=== PATIENT | female | born 1945 | race Caucasian/White ===

== ENCOUNTER 2022-07-04 18:52 | Inpatient (IN) | payer OTHER ==
[2022-07-04] MEDS ORDERED: ALBUTEROL SO4 2.5/IPRATROPIUM 0.5 INH SOL 3 ML VIAL.NEB. NEB ONE ×2 (19:52→20:03)
[2022-07-04] MEDS ORDERED: VANCOMYCIN/WATER 1,250 MG/250 ML BAG (RESTRICTED TO ID ONLY) IVPB ONE (19:53)
[2022-07-04] MEDS ORDERED: PIPERACILLIN/TAZOB 4.5 GM 4.5 GM in DEXTROSE 5%-WATER 100 ML IVPB ONE (19:54)
[2022-07-04] MEDS ORDERED: LACTATED RINGERS SOLUTION 1000 ML INFUS.BAG IV ONE ×2 (19:55→21:32)
[2022-07-04 20:14] LABS: BASO % 0.4 % (0-2.0); HEMATOCRIT 40.1 % (32.4-45.2); HEMOGLOBIN 13.3 GM/dL (10.7-15.3); LYMPH % 23.4 % (8-40); MCH 32.5 pg (25.7-33.7); MCHC 33.2 g/dl (32.0-36.0); MEAN CELL VOLUME 97.7 fl (80-96); MEAN PLT VOLUME 6.5 fl (7.5-11.1); MONO % 8.5 % (3.8-10.2); NEUT % 66.7 % (42.8-82.8); PLATELET COUNT 283 10^3/uL (134-434); RBC 4.11 M/mm3 (3.60-5.2); RDW 13.9 % (11.6-15.6); WHITE BLOOD COUNT 8.7 K/mm3 (4.0-10.0)
[2022-07-04] MEDS ORDERED: PIPERACILLIN/TAZOB 4.5 GM 4.5 GM/100 ML BAG IVPB ONE (20:14)
[2022-07-04 20:27] LABS: INR 1.09 (0.83-1.09); PROTHROMBIN TIME (PATIENT) 12.6 SEC (9.7-13.0)
[2022-07-04 20:29] LABS: ACTIVATED PTT 30.7 SECONDS (25.2-36.5)
[2022-07-04 20:31] LABS: VENOUS BASE EXCESS 3.6 mmol/L (-2-2); VENOUS O2 SATURATION 54.6 % (70-80); VENOUS PCO2 50.6 mmHg (38-52); VENOUS PH 7.386 (7.310-7.410)
[2022-07-04 20:39] LABS: BLOOD UREA NITROGEN 34.5 mg/dL (7-18)
[2022-07-04 20:40] LABS: ALBUMIN 2.7 g/dl (3.4-5.0); MAGNESIUM 2.6 mg/dL (1.8-2.4)
[2022-07-04 20:43] LABS: CREATININE 0.9 mg/dL (0.55-1.3)
[2022-07-04 20:44] LABS: BILIRUBIN,TOTAL 0.4 mg/dL (0.2-1); TOT PROT 6.1 g/dl (6.4-8.2)
[2022-07-04 21:49] LABS: EPI CELLS >36 /uL (0-25.1); HYALINE CASTS 1 /uL (0-3.1); URINE APPEARANCE CLEAR; URINE BACTERIA 2992 /uL (0-1359); URINE BILIRUBIN NEGATIVE (NEGATIVE); URINE COLOR YELLOW; URINE GLUCOSE (UA) NEGATIVE (NEGATIVE); URINE KETONE TRACE (NEGATIVE); URINE LEUK ESTERASE 1+ (NEGATIVE); URINE NITRITE NEGATIVE (NEGATIVE); URINE PROTEIN TRACE (NEGATIVE); URINE RBC 28 /uL (0-23.9); URINE WBC 146 /uL (0-25.8)
[2022-07-04 23:35] LABS: LACTIC ACID 2.1 mmol/L (0.4-2.0)
[2022-07-04] MEDS ORDERED: DEXTROSE 5%-NORMAL SALINE 1,000 ML IV SCH (23:45)
[2022-07-05 07:00] LABS: CALCIUM 8.5 mg/dL (8.5-10.1)
[2022-07-05 07:01] LABS: BLOOD UREA NITROGEN 29.6 mg/dL (7-18); MAGNESIUM 2.2 mg/dL (1.8-2.4)
[2022-07-05 07:04] LABS: CREATININE 0.7 mg/dL (0.55-1.3); PHOSPHOROUS 3.3 mg/dL (2.5-4.9)
[2022-07-05] MEDS ORDERED: ALBUTEROL SO4 2.5/IPRATROPIUM 0.5 INH SOL 3 ML VIAL.NEB. NEB PRN (07:16)
[2022-07-05 07:18] LABS: HEMATOCRIT 38.2 % (32.4-45.2); HEMOGLOBIN 13.1 GM/dL (10.7-15.3); MCH 32.8 pg (25.7-33.7); MCHC 34.2 g/dl (32.0-36.0); MEAN CELL VOLUME 95.9 fl (80-96); MEAN PLT VOLUME 6.6 fl (7.5-11.1); PLATELET COUNT 260 10^3/uL (134-434); RBC 3.98 M/mm3 (3.60-5.2); RDW 13.7 % (11.6-15.6); WHITE BLOOD COUNT 9.8 K/mm3 (4.0-10.0)
[2022-07-05] MEDS ORDERED: ALBUTEROL SO4 2.5/IPRATROPIUM 0.5 INH SOL 3 ML VIAL.NEB. NEB ONE (07:45)
[2022-07-05] MEDS ORDERED: VANCOMYCIN/WATER 1,250 MG/250 ML BAG (RESTRICTED TO ID ONLY) IVPB SCH (08:00)
[2022-07-05] MEDS ORDERED: PIPERACILLIN/TAZOB 3.375 GM 3.375 GM in DEXTROSE 5%-WATER - 50 ML IVPB SCH ×2 (08:00→10:00)
[2022-07-05] MEDS ORDERED: VANCOMYCIN/WATER 1250 MG 1,250 MG/250 ML BAG IVPB SCH ×2 (08:00→20:00)
[2022-07-05] MEDS: FLUTICASONE PROP 0.05% 16 GM NASAL SPRAY NS SCH (10:28)
[2022-07-05] MEDS: methylPREDNISolone NA SUCC 40 MG/1 ML VIAL IVPUSH SCH ×2 (11:50→17:42)
[2022-07-05] MEDS: LORazepam 2 MG/ML SDV VIAL IVPUSH PRN (11:50)
[2022-07-05] MEDS: ALBUTEROL SO4 2.5/IPRATROPIUM 0.5 INH SOL 3 ML VIAL.NEB. NEB SCH ×5 (11:55→23:23)
[2022-07-05] MEDS: PIPERACILLIN/TAZOB 3.375 GM 3.375 GM in DEXTROSE 5%-WATER - 50 ML IVPB SCH (17:42)
[2022-07-06] MEDS: methylPREDNISolone NA SUCC 40 MG/1 ML VIAL IVPUSH SCH ×3 (02:23→17:47)
[2022-07-06] MEDS: PIPERACILLIN/TAZOB 3.375 GM 3.375 GM in DEXTROSE 5%-WATER - 50 ML IVPB SCH ×3 (02:24→17:47)
[2022-07-06] MEDS: LORazepam 2 MG/ML SDV VIAL IVPUSH PRN ×2 (03:18→17:05)
[2022-07-06] MEDS: ALBUTEROL SO4 2.5/IPRATROPIUM 0.5 INH SOL 3 ML VIAL.NEB. NEB SCH ×5 (04:30→21:23)
[2022-07-06] MEDS ORDERED: SODIUM CHLORIDE 250 ML IV STA (05:01)
[2022-07-06 08:54] LABS: BLOOD UREA NITROGEN 29.8 mg/dL (7-18); CALCIUM 8.7 mg/dL (8.5-10.1)
[2022-07-06 08:58] LABS: CREATININE 0.8 mg/dL (0.55-1.3)
[2022-07-06] MEDS: FLUTICASONE PROP 0.05% 16 GM NASAL SPRAY NS SCH (10:24)
[2022-07-06] MEDS: PANTOPRAZOLE 40 MG TABLET PO SCH (10:24)
[2022-07-06 11:05] VITALS: BMI 29.9
[2022-07-06] MEDS ORDERED: SODIUM CHLORIDE 0.45% 1,000 ML IV SCH (17:45)
[2022-07-07] MEDS: ALBUTEROL SO4 2.5/IPRATROPIUM 0.5 INH SOL 3 ML VIAL.NEB. NEB SCH ×6 (00:15→19:43)
[2022-07-07] MEDS: methylPREDNISolone NA SUCC 40 MG/1 ML VIAL IVPUSH SCH ×3 (02:04→16:59)
[2022-07-07] MEDS: PIPERACILLIN/TAZOB 3.375 GM 3.375 GM in DEXTROSE 5%-WATER - 50 ML IVPB SCH ×3 (02:05→16:59)
[2022-07-07] MEDS: LORazepam 2 MG/ML SDV VIAL IVPUSH PRN (02:05)
[2022-07-07] MEDS: PANTOPRAZOLE 40 MG TABLET PO SCH (10:34)
[2022-07-07] MEDS: FLUTICASONE PROP 0.05% 16 GM NASAL SPRAY NS SCH (10:35)
[2022-07-07] MEDS ORDERED: LORazepam 2 MG/ML SDV VIAL IVPUSH PRN (14:26)
[2022-07-07] MEDS: DONEPEZIL HCL 10 MG TABLET (FP) PO SCH (14:34)
[2022-07-07] MEDS: LORATADINE 10 MG TABLET PO SCH (14:34)
[2022-07-07] MEDS: clonazePAM 0.5 MG TABLET PO SCH ×2 (14:41→20:58)
[2022-07-07] MEDS: EZETIMIBE 10 MG TABLET (FP) PO SCH (21:03)
[2022-07-07] MEDS: ATORVASTATIN CA 20 MG TABLET (FP) PO SCH (21:04)
[2022-07-07] MEDS: MIRTAZAPINE 15 MG TABLET (FP) PO SCH (21:04)
[2022-07-07] MEDS: VALPROATE SODIUM 250 MG/5 ML UNIT DOSE CUP PO SCH (21:05)
[2022-07-08] MEDS: ALBUTEROL SO4 2.5/IPRATROPIUM 0.5 INH SOL 3 ML VIAL.NEB. NEB SCH ×6 (00:31→20:00)
[2022-07-08] MEDS: PIPERACILLIN/TAZOB 3.375 GM 3.375 GM in DEXTROSE 5%-WATER - 50 ML IVPB SCH ×3 (02:20→18:47)
[2022-07-08] MEDS: clonazePAM 0.5 MG TABLET PO SCH ×3 (06:52→22:53)
[2022-07-08] MEDS: methylPREDNISolone NA SUCC 40 MG/1 ML VIAL IVPUSH SCH ×2 (06:52→18:46)
[2022-07-08] MEDS ORDERED: HYDROCHLOROTHIAZIDE 12.5 MG CAPSULE (FP) PO SCH (10:00)
[2022-07-08] MEDS: POTASSIUM CHLORIDE ORAL LIQUID 20 MEQ/15 ML PO SCH (10:15)
[2022-07-08] MEDS: DONEPEZIL HCL 10 MG TABLET (FP) PO SCH (10:16)
[2022-07-08] MEDS: PANTOPRAZOLE 40 MG TABLET PO SCH (10:16)
[2022-07-08] MEDS: LOSARTAN POTASSIUM 50 MG TABLET PO SCH (10:16)
[2022-07-08] MEDS: LORATADINE 10 MG TABLET PO SCH (10:16)
[2022-07-08] MEDS: VALPROATE SODIUM 250 MG/5 ML UNIT DOSE CUP PO SCH ×2 (10:17→22:53)
[2022-07-08] MEDS: FLUTICASONE PROP 0.05% 16 GM NASAL SPRAY NS SCH (10:18)
[2022-07-08] MEDS ORDERED: AMPICILLIN NA/SULBACTAM NA 1.5 GM in SODIUM CHLORIDE 100 ML IVPB SCH (21:00)
[2022-07-08] MEDS: AMPICILLIN NA/SULBACTAM NA 1.5 GM in SODIUM CHLORIDE 100 ML IVPB SCH (22:53)
[2022-07-08] MEDS: ATORVASTATIN CA 20 MG TABLET (FP) PO SCH (22:54)
[2022-07-08] MEDS: MIRTAZAPINE 15 MG TABLET (FP) PO SCH (22:54)
[2022-07-08] MEDS: EZETIMIBE 10 MG TABLET (FP) PO SCH (22:54)
[2022-07-09] MEDS: AMPICILLIN NA/SULBACTAM NA 1.5 GM in SODIUM CHLORIDE 100 ML IVPB SCH ×4 (03:41→21:09)
[2022-07-09] MEDS: ALBUTEROL SO4 2.5/IPRATROPIUM 0.5 INH SOL 3 ML VIAL.NEB. NEB SCH ×6 (04:00→20:28)
[2022-07-09] MEDS: methylPREDNISolone NA SUCC 40 MG/1 ML VIAL IVPUSH SCH ×2 (06:55→17:16)
[2022-07-09] MEDS: clonazePAM 0.5 MG TABLET PO SCH ×3 (06:56→22:43)
[2022-07-09] MEDS: LOSARTAN POTASSIUM 50 MG TABLET PO SCH (11:11)
[2022-07-09] MEDS: LORATADINE 10 MG TABLET PO SCH (11:11)
[2022-07-09] MEDS: POTASSIUM CHLORIDE ORAL LIQUID 20 MEQ/15 ML PO SCH (11:11)
[2022-07-09] MEDS: VALPROATE SODIUM 250 MG/5 ML UNIT DOSE CUP PO SCH ×2 (11:11→22:42)
[2022-07-09] MEDS: DONEPEZIL HCL 10 MG TABLET (FP) PO SCH (11:11)
[2022-07-09] MEDS: PANTOPRAZOLE 40 MG TABLET PO SCH (11:11)
[2022-07-09] MEDS: FLUTICASONE PROP 0.05% 16 GM NASAL SPRAY NS SCH (11:13)
[2022-07-09] MEDS: EZETIMIBE 10 MG TABLET (FP) PO SCH (22:42)
[2022-07-09] MEDS: MIRTAZAPINE 15 MG TABLET (FP) PO SCH (22:43)
[2022-07-09] MEDS: ATORVASTATIN CA 20 MG TABLET (FP) PO SCH (22:43)
[2022-07-10] MEDS: ALBUTEROL SO4 2.5/IPRATROPIUM 0.5 INH SOL 3 ML VIAL.NEB. NEB SCH ×3 (00:31→07:27)
[2022-07-10] MEDS: AMPICILLIN NA/SULBACTAM NA 1.5 GM in SODIUM CHLORIDE 100 ML IVPB SCH ×4 (03:20→22:20)
[2022-07-10] MEDS ORDERED: AMPICILLIN NA/SULBACTAM NA 1.5 GM VIAL ONE (03:24)
[2022-07-10] MEDS: methylPREDNISolone NA SUCC 40 MG/1 ML VIAL IVPUSH SCH ×2 (06:46→17:34)
[2022-07-10] MEDS: clonazePAM 0.5 MG TABLET PO SCH ×3 (06:47→22:21)
[2022-07-10] MEDS: PANTOPRAZOLE 40 MG TABLET PO SCH (11:54)
[2022-07-10] MEDS: DONEPEZIL HCL 10 MG TABLET (FP) PO SCH (11:54)
[2022-07-10] MEDS: VALPROATE SODIUM 250 MG/5 ML UNIT DOSE CUP PO SCH ×2 (11:55→22:20)
[2022-07-10] MEDS: POTASSIUM CHLORIDE ORAL LIQUID 20 MEQ/15 ML PO SCH (11:55)
[2022-07-10] MEDS: LORATADINE 10 MG TABLET PO SCH (11:55)
[2022-07-10] MEDS: LOSARTAN POTASSIUM 50 MG TABLET PO SCH (11:56)
[2022-07-10] MEDS: FLUTICASONE PROP 0.05% 16 GM NASAL SPRAY NS SCH (11:57)
[2022-07-10] MEDS: FUROSEMIDE 40 MG/4 ML INJECTABLE VIAL IVPUSH SCH (14:12)
[2022-07-10] MEDS: ATORVASTATIN CA 20 MG TABLET (FP) PO SCH (22:21)
[2022-07-10] MEDS: EZETIMIBE 10 MG TABLET (FP) PO SCH (22:22)
[2022-07-10] MEDS: MIRTAZAPINE 15 MG TABLET (FP) PO SCH (22:24)
[2022-07-11] MEDS: AMPICILLIN NA/SULBACTAM NA 1.5 GM in SODIUM CHLORIDE 100 ML IVPB SCH ×3 (03:40→14:50)
[2022-07-11] MEDS: methylPREDNISolone NA SUCC 40 MG/1 ML VIAL IVPUSH SCH ×2 (05:50→17:24)
[2022-07-11] MEDS: clonazePAM 0.5 MG TABLET PO SCH ×3 (05:50→21:30)
[2022-07-11] MEDS: VALPROATE SODIUM 250 MG/5 ML UNIT DOSE CUP PO SCH ×2 (10:29→21:30)
[2022-07-11] MEDS: LOSARTAN POTASSIUM 50 MG TABLET PO SCH (10:29)
[2022-07-11] MEDS: LORATADINE 10 MG TABLET PO SCH (10:29)
[2022-07-11] MEDS: PANTOPRAZOLE 40 MG TABLET PO SCH (10:29)
[2022-07-11] MEDS: POTASSIUM CHLORIDE ORAL LIQUID 20 MEQ/15 ML PO SCH (10:29)
[2022-07-11] MEDS: DONEPEZIL HCL 10 MG TABLET (FP) PO SCH (10:29)
[2022-07-11] MEDS: FLUTICASONE PROP 0.05% 16 GM NASAL SPRAY NS SCH (10:30)
[2022-07-11] MEDS: FUROSEMIDE 40 MG/4 ML INJECTABLE VIAL IVPUSH SCH (10:30)
[2022-07-11] MEDS: AMOX TR/POTASSIUM CLAVULANATE 400 MG/5 ML BOTTLE PO SCH (17:24)
[2022-07-11] MEDS: ATORVASTATIN CA 20 MG TABLET (FP) PO SCH (21:29)
[2022-07-11] MEDS: MIRTAZAPINE 15 MG TABLET (FP) PO SCH (21:29)
[2022-07-11] MEDS: EZETIMIBE 10 MG TABLET (FP) PO SCH (21:30)
[2022-07-12] MEDS: clonazePAM 0.5 MG TABLET PO SCH ×3 (05:57→21:50)
[2022-07-12] MEDS: methylPREDNISolone NA SUCC 40 MG/1 ML VIAL IVPUSH SCH ×2 (05:57→17:45)
[2022-07-12] MEDS: VALPROATE SODIUM 250 MG/5 ML UNIT DOSE CUP PO SCH ×2 (09:42→21:51)
[2022-07-12] MEDS: PANTOPRAZOLE 40 MG TABLET PO SCH (09:43)
[2022-07-12] MEDS: DONEPEZIL HCL 10 MG TABLET (FP) PO SCH (09:43)
[2022-07-12] MEDS: FUROSEMIDE 40 MG/4 ML INJECTABLE VIAL IVPUSH SCH (09:43)
[2022-07-12] MEDS: LOSARTAN POTASSIUM 50 MG TABLET PO SCH (09:43)
[2022-07-12] MEDS: LORATADINE 10 MG TABLET PO SCH (09:43)
[2022-07-12] MEDS: FLUTICASONE PROP 0.05% 16 GM NASAL SPRAY NS SCH (09:43)
[2022-07-12] MEDS: AMOX TR/POTASSIUM CLAVULANATE 400 MG/5 ML BOTTLE PO SCH ×2 (09:52→17:45)
[2022-07-12] MEDS: POTASSIUM CHLORIDE ORAL LIQUID 20 MEQ/15 ML PO SCH (10:17)
[2022-07-12] MEDS: MIRTAZAPINE 15 MG TABLET (FP) PO SCH (21:46)
[2022-07-12] MEDS: EZETIMIBE 10 MG TABLET (FP) PO SCH (21:48)
[2022-07-12] MEDS: ATORVASTATIN CA 20 MG TABLET (FP) PO SCH (21:51)
[2022-07-13] MEDS: clonazePAM 0.5 MG TABLET PO SCH ×3 (08:00→21:40)
[2022-07-13] MEDS: methylPREDNISolone NA SUCC 40 MG/1 ML VIAL IVPUSH SCH (08:00)
[2022-07-13] MEDS ORDERED: predniSONE 20 MG TABLET (UD) PO SCH (10:00)
[2022-07-13] MEDS: VALPROATE SODIUM 250 MG/5 ML UNIT DOSE CUP PO SCH ×2 (10:03→21:40)
[2022-07-13] MEDS: AMOX TR/POTASSIUM CLAVULANATE 400 MG/5 ML BOTTLE PO SCH ×2 (10:03→17:34)
[2022-07-13] MEDS: DONEPEZIL HCL 10 MG TABLET (FP) PO SCH (10:04)
[2022-07-13] MEDS: LORATADINE 10 MG TABLET PO SCH (10:04)
[2022-07-13] MEDS: FLUTICASONE PROP 0.05% 16 GM NASAL SPRAY NS SCH (10:04)
[2022-07-13] MEDS: FUROSEMIDE 20 MG TABLET (FP) PO SCH (10:04)
[2022-07-13] MEDS: PANTOPRAZOLE 40 MG TABLET PO SCH (10:04)
[2022-07-13] MEDS: POTASSIUM CHLORIDE ORAL LIQUID 20 MEQ/15 ML PO SCH (10:04)
[2022-07-13] MEDS: LOSARTAN POTASSIUM 50 MG TABLET PO SCH (10:04)
[2022-07-13] MEDS: ATORVASTATIN CA 20 MG TABLET (FP) PO SCH (21:39)
[2022-07-13] MEDS: MIRTAZAPINE 15 MG TABLET (FP) PO SCH (21:39)
[2022-07-13] MEDS: EZETIMIBE 10 MG TABLET (FP) PO SCH (21:39)
[2022-07-14] MEDS: clonazePAM 0.5 MG TABLET PO SCH (06:01)
[2022-07-14] MEDS ORDERED: predniSONE 20 MG TABLET (UD) PO SCH (10:00)
[2022-07-14 10:31] VITALS: RESP 20
[2022-07-14] MEDS: LORATADINE 10 MG TABLET PO SCH (10:34)
[2022-07-14] MEDS: DONEPEZIL HCL 10 MG TABLET (FP) PO SCH (10:34)
[2022-07-14] MEDS: LOSARTAN POTASSIUM 50 MG TABLET PO SCH (10:34)
[2022-07-14] MEDS: PANTOPRAZOLE 40 MG TABLET PO SCH (10:34)
[2022-07-14] MEDS: FUROSEMIDE 20 MG TABLET (FP) PO SCH (10:34)
[2022-07-14] MEDS: FLUTICASONE PROP 0.05% 16 GM NASAL SPRAY NS SCH (10:35)
[2022-07-14] MEDS: POTASSIUM CHLORIDE ORAL LIQUID 20 MEQ/15 ML PO SCH (10:35)
[2022-07-14] MEDS: VALPROATE SODIUM 250 MG/5 ML UNIT DOSE CUP PO SCH (10:35)
[2022-07-14] MEDS: AMOX TR/POTASSIUM CLAVULANATE 400 MG/5 ML BOTTLE PO SCH (11:18)
[2022-07-14 13:32] VITALS: BP 126/80; PULSE 90; TEMP 97.4
== END 2022-07-14 14:59 | DRG 193 ==
LOC: JER 18:52 → JERBED 22:28 → J6S 07-05 08:16
PROVIDERS: ADMIT Internal Medicine; ATTEND Internal Medicine
DX: J18.9 Pneumonia, unspecified organism (principal); G93.41 Metabolic encephalopathy; N39.0 Urinary tract infection, site not specified; R47.01 Aphasia; G30.9 Alzheimer's disease, unspecified; I10 Essential (primary) hypertension; E78.5 Hyperlipidemia, unspecified; E86.0 Dehydration; R09.02 Hypoxemia; F02.80 Dementia in other diseases classified elsewhere, unspecified severity, without behavioral disturbance, psychotic disturbance, mood disturbance, and anxiety; E88.09 Other disorders of plasma-protein metabolism, not elsewhere classified
CPT/HCPCS: 0241U-QW; 36415; 70450-TC; 71045-TC-FY; 72125-TC; 80048; 80053; 81003; 82803; 83605; 83735; 84100; 84484; 85025; 85027; 85610; 85730; 86850; 86900; 86901; 87040; 87086; 87186; 87899; 93005; 93010; 94640; 99285-25; C9803-CS; U0003; U0005

== ENCOUNTER 2022-07-26 10:11 | Emergency (ER) | payer OTHER ==
[2022-07-26 10:57] VITALS: BMI 36.6
[2022-07-26 11:17] LABS: EPI CELLS 13 /uL (0-25.1); HYALINE CASTS 1 /uL (0-3.1); URINE APPEARANCE CLEAR; URINE BACTERIA >9,000 /uL (0-1359); URINE BILIRUBIN NEGATIVE (NEGATIVE); URINE COLOR YELLOW; URINE GLUCOSE (UA) NEGATIVE (NEGATIVE); URINE KETONE NEGATIVE (NEGATIVE); URINE LEUK ESTERASE TRACE (NEGATIVE); URINE NITRITE POSITIVE (NEGATIVE); URINE PROTEIN NEGATIVE (NEGATIVE); URINE RBC 32 /uL (0-23.9); URINE WBC 51 /uL (0-25.8)
[2022-07-26 11:23] LABS: INR 1.05 (0.83-1.09); PROTHROMBIN TIME (PATIENT) 12.2 SEC (9.7-13.0)
[2022-07-26 11:25] LABS: BASO % 0.2 % (0-2.0); HEMATOCRIT 40.4 % (32.4-45.2); HEMOGLOBIN 13.7 GM/dL (10.7-15.3); LYMPH % 17.9 % (8-40); MCH 32.5 pg (25.7-33.7); MEAN CELL VOLUME 95.6 fl (80-96); MEAN PLT VOLUME 6.6 fl (7.5-11.1); MONO % 4.5 % (3.8-10.2); NEUT % 75.4 % (42.8-82.8); PLATELET COUNT 219 10^3/uL (134-434); RBC 4.23 M/mm3 (3.60-5.2); RDW 14.3 % (11.6-15.6); WHITE BLOOD COUNT 8.8 K/mm3 (4.0-10.0)
[2022-07-26 11:26] LABS: ACTIVATED PTT 30.2 SECONDS (25.2-36.5)
[2022-07-26 11:42] LABS: CALCIUM 8.7 mg/dL (8.5-10.1)
[2022-07-26 11:43] LABS: ALBUMIN 2.6 g/dl (3.4-5.0); BLOOD UREA NITROGEN 16.4 mg/dL (7-18); MAGNESIUM 2.2 mg/dL (1.8-2.4)
[2022-07-26 11:45] LABS: BILIRUBIN,TOTAL 0.6 mg/dL (0.2-1); PHOSPHOROUS 2.9 mg/dL (2.5-4.9)
[2022-07-26 11:46] LABS: CREATININE 0.7 mg/dL (0.55-1.3); TOT PROT 5.6 g/dl (6.4-8.2)
[2022-07-26] MEDS ORDERED: NITROFURANTOIN MACROCRYSTAL 50 MG CAPSULE (FP) PO ONE (12:15)
[2022-07-26] MEDS ORDERED: NITROFURANTOIN MACROCRYSTAL 50 MG CAPSULE (FP) ONE (12:19)
[2022-07-26 13:05] VITALS: PULSE 88; RESP 18
[2022-07-26] MEDS ORDERED: METOCLOPRAMIDE HCL INJECTION 10 MG/2 ML VIAL ONE (14:32)
[2022-07-26] MEDS: METOCLOPRAMIDE HCL INJECTION 10 MG/2 ML VIAL IVPUSH ONE ×2 (15:34)
[2022-07-26 16:26] VITALS: BP 137/82; TEMP 98.4
== END 2022-07-26 18:15 | disposition home or self-care (01) ==
LOC: JER 10:11
DX: N30.01 Acute cystitis with hematuria (principal); R41.82 Altered mental status, unspecified; N39.0 Urinary tract infection, site not specified; Z20.822 Contact with and (suspected) exposure to COVID-19
CPT/HCPCS: 0241U-QW; 36415; 70450-TC; 71045-TC-FY; 80053; 81003; 82962; 83605; 83735; 84100; 84484; 85025; 85610; 85730; 87086; 87186; 93005; 93010; 99285-25

== ENCOUNTER 2022-11-17 00:15 | Inpatient (IN) | payer OTHER ==
[2022-11-17 00:24] VITALS: BMI 35.1
[2022-11-17] MEDS ORDERED: ALBUTEROL SO4 2.5/IPRATROPIUM 0.5 INH SOL 3 ML VIAL.NEB. NEB ONE (01:04)
[2022-11-17] MEDS ORDERED: DEXAMETHASONE SOD PHOSPHATE 10 MG/1 ML VIAL IVPUSH ONE (01:04)
[2022-11-17] MEDS ORDERED: DEXAMETHASONE SOD PHOSPHATE 10 MG/1 ML VIAL ONE (01:04)
[2022-11-17] MEDS: DEXAMETHASONE SOD PHOSPHATE 10 MG/1 ML VIAL IM ONE ×2 (01:10→01:11)
[2022-11-17] MEDS: ALBUTEROL SO4 2.5/IPRATROPIUM 0.5 INH SOL 3 ML VIAL.NEB. NEB SCH ×3 (01:10→01:20)
[2022-11-17 01:12] LABS: BASO % 0.4 % (0-2.0); HEMATOCRIT 44.5 % (32.4-45.2); HEMOGLOBIN 15.1 GM/dL (10.7-15.3); LYMPH % 18.4 % (8-40); MCH 31.5 pg (25.7-33.7); MCHC 33.9 g/dl (32.0-36.0); MEAN PLT VOLUME 7.4 fl (7.5-11.1); MONO % 5.6 % (3.8-10.2); NEUT % 72.6 % (42.8-82.8); PLATELET COUNT 97 10^3/uL (134-434); RBC 4.78 M/mm3 (3.60-5.2); RDW 14.1 % (11.6-15.6); WHITE BLOOD COUNT 10.6 K/mm3 (4.0-10.0)
[2022-11-17 01:32] LABS: POTASSIUM 5.1 mmol/L (3.5-5.1)
[2022-11-17 01:34] LABS: CALCIUM 9.1 mg/dL (8.5-10.1)
[2022-11-17 01:35] LABS: ALBUMIN 2.9 g/dl (3.4-5.0); BLOOD UREA NITROGEN 21.4 mg/dL (7-18); MAGNESIUM 2.2 mg/dL (1.8-2.4)
[2022-11-17 01:38] LABS: CREATININE 0.8 mg/dL (0.55-1.3)
[2022-11-17 01:40] LABS: BILIRUBIN,TOTAL 0.6 mg/dL (0.2-1); TOT PROT 6.5 g/dl (6.4-8.2)
[2022-11-17 01:58] LABS: EPI CELLS 29 /uL (0-25.1); HYALINE CASTS 0 /uL (0-3.1); PH,URINE 6.5 (5.0-8.0); URINE APPEARANCE CLEAR; URINE BACTERIA 276 /uL (0-1359); URINE BILIRUBIN NEGATIVE (NEGATIVE); URINE COLOR YELLOW; URINE GLUCOSE (UA) NEGATIVE (NEGATIVE); URINE KETONE NEGATIVE (NEGATIVE); URINE LEUK ESTERASE TRACE (NEGATIVE); URINE NITRITE NEGATIVE (NEGATIVE); URINE PROTEIN NEGATIVE (NEGATIVE); URINE RBC 29 /uL (0-23.9); URINE WBC 14 /uL (0-25.8)
[2022-11-17] MEDS ORDERED: AZITHROMYCIN IVPB 500 MG in DEXTROSE 5%-WATER - 250 ML IVPB ONE (02:05)
[2022-11-17] MEDS ORDERED: CEFTRIAXONE 1,000 MG in DEXTROSE 5%-WATER - 50 ML IVPB ONE (02:05)
[2022-11-17] MEDS ORDERED: AZITHROMYCIN IVPB 500 MG/250 ML BAG IVPB ONE (02:22)
[2022-11-17] MEDS ORDERED: CEFTRIAXONE 1 GM/50 ML BAG ONE (02:22)
[2022-11-17] MEDS ORDERED: REMDESIVIR 200 MG in SODIUM CHLORIDE 250 ML IVPB ONE ×2 (02:50→05:00)
[2022-11-17] MEDS ORDERED: clonazePAM 0.5 MG TABLET ONE ×2 (08:32→08:33)
[2022-11-17] MEDS ORDERED: CITALOPRAM HYDROBROMIDE 10 MG TABLET ONE (08:32)
[2022-11-17] MEDS ORDERED: LORATADINE 10 MG TABLET ONE (08:34)
[2022-11-17] MEDS ORDERED: VALPROATE SODIUM 500 MG/5 ML VIAL ONE (08:35)
[2022-11-17] MEDS: clonazePAM 0.5 MG TABLET PO SCH ×3 (08:38→23:43)
[2022-11-17] MEDS: LORATADINE 10 MG TABLET PO SCH (09:02)
[2022-11-17] MEDS: CITALOPRAM HYDROBROMIDE 10 MG TABLET PO SCH (09:02)
[2022-11-17] MEDS: VALPROATE SODIUM 250 MG/5 ML UNIT DOSE CUP PO SCH ×2 (09:02→23:43)
[2022-11-17] MEDS: CYANOCOBALAMIN 1,000 MCG TABLET (FP) PO SCH (10:42)
[2022-11-18] MEDS: clonazePAM 0.5 MG TABLET PO SCH ×3 (05:57→21:57)
[2022-11-18] MEDS: EZETIMIBE 10 MG TABLET (FP) PO SCH ×2 (10:21→21:57)
[2022-11-18] MEDS: DEXAMETHASONE SOD PHOSPHATE 10 MG/1 ML VIAL IVPUSH SCH (10:22)
[2022-11-18] MEDS: REMDESIVIR 100 MG in SODIUM CHLORIDE 250 ML IVPB SCH (10:22)
[2022-11-18] MEDS: VALPROATE SODIUM 250 MG/5 ML UNIT DOSE CUP PO SCH ×2 (12:02→21:58)
[2022-11-18] MEDS: CYANOCOBALAMIN 1,000 MCG TABLET (FP) PO SCH (12:02)
[2022-11-18] MEDS: CITALOPRAM HYDROBROMIDE 10 MG TABLET PO SCH (12:02)
[2022-11-18] MEDS: LORATADINE 10 MG TABLET PO SCH (12:02)
[2022-11-18 13:34] LABS: ARTERIAL BLD GAS O2 SATURATION 94.3 % (95-98); ARTERIAL BLOOD GAS PO2 68.4 mmHg (80-100); ARTERIAL BLOOD GAS pH 7.436 (7.350-7.450)
[2022-11-18] MEDS: DEXTROSE 5%-NORMAL SALINE 1,000 ML IV SCH (13:40)
[2022-11-18] MEDS: ATORVASTATIN CA 20 MG TABLET (FP) PO SCH (21:57)
[2022-11-19] MEDS: DEXTROSE 5%-NORMAL SALINE 1,000 ML IV SCH ×3 (04:50→22:01)
[2022-11-19] MEDS: clonazePAM 0.5 MG TABLET PO SCH ×3 (05:35→22:02)
[2022-11-19] MEDS: REMDESIVIR 100 MG in SODIUM CHLORIDE 250 ML IVPB SCH (06:50)
[2022-11-19 10:31] LABS: POTASSIUM 3.8 mmol/L (3.5-5.1)
[2022-11-19 10:35] LABS: BLOOD UREA NITROGEN 35.8 mg/dL (7-18); CALCIUM 8.9 mg/dL (8.5-10.1)
[2022-11-19 10:36] LABS: ALBUMIN 2.9 g/dl (3.4-5.0)
[2022-11-19 10:38] LABS: CREATININE 0.6 mg/dL (0.55-1.3)
[2022-11-19 10:40] LABS: BILIRUBIN,TOTAL 0.5 mg/dL (0.2-1); TOT PROT 5.9 g/dl (6.4-8.2)
[2022-11-19 10:51] LABS: BASO % 0.3 % (0-2.0); EOS % 0.2 % (0-4.5); HEMATOCRIT 40.3 % (32.4-45.2); HEMOGLOBIN 13.4 GM/dL (10.7-15.3); LYMPH % 22.3 % (8-40); MCH 30.8 pg (25.7-33.7); MCHC 33.3 g/dl (32.0-36.0); MEAN CELL VOLUME 92.5 fl (80-96); MEAN PLT VOLUME 6.7 fl (7.5-11.1); NEUT % 70.2 % (42.8-82.8); RBC 4.36 M/mm3 (3.60-5.2); RDW 14.2 % (11.6-15.6); WHITE BLOOD COUNT 9.6 K/mm3 (4.0-10.0)
[2022-11-19 10:53] LABS: PLATELET COUNT 324 10^3/uL (134-434)
[2022-11-19] MEDS: CYANOCOBALAMIN 1,000 MCG TABLET (FP) PO SCH (11:23)
[2022-11-19] MEDS: LORATADINE 10 MG TABLET PO SCH (11:23)
[2022-11-19] MEDS: CITALOPRAM HYDROBROMIDE 10 MG TABLET PO SCH (11:23)
[2022-11-19] MEDS: VALPROATE SODIUM 250 MG/5 ML UNIT DOSE CUP PO SCH ×2 (11:23→22:02)
[2022-11-19] MEDS: DEXAMETHASONE SOD PHOSPHATE 10 MG/1 ML VIAL IVPUSH SCH (11:23)
[2022-11-19] MEDS: ATORVASTATIN CA 20 MG TABLET (FP) PO SCH (22:02)
[2022-11-19] MEDS: EZETIMIBE 10 MG TABLET (FP) PO SCH (22:02)
[2022-11-20] MEDS: clonazePAM 0.5 MG TABLET PO SCH ×3 (05:51→21:41)
[2022-11-20] MEDS: REMDESIVIR 100 MG in SODIUM CHLORIDE 250 ML IVPB SCH (06:23)
[2022-11-20 07:03] VITALS: RESP 18
[2022-11-20] MEDS: CYANOCOBALAMIN 1,000 MCG TABLET (FP) PO SCH (10:15)
[2022-11-20] MEDS: CITALOPRAM HYDROBROMIDE 10 MG TABLET PO SCH (10:15)
[2022-11-20] MEDS: VALPROATE SODIUM 250 MG/5 ML UNIT DOSE CUP PO SCH ×2 (10:15→21:42)
[2022-11-20] MEDS: DEXAMETHASONE SOD PHOSPHATE 10 MG/1 ML VIAL IVPUSH SCH (10:15)
[2022-11-20] MEDS: LORATADINE 10 MG TABLET PO SCH (10:15)
[2022-11-20] MEDS: DEXTROSE 5%-NORMAL SALINE 1,000 ML IV SCH (14:17)
[2022-11-20] MEDS: EZETIMIBE 10 MG TABLET (FP) PO SCH (21:41)
[2022-11-20] MEDS: ATORVASTATIN CA 20 MG TABLET (FP) PO SCH (21:41)
[2022-11-21] MEDS: DEXTROSE 5%-NORMAL SALINE 1,000 ML IV SCH ×2 (03:09→15:10)
[2022-11-21] MEDS: clonazePAM 0.5 MG TABLET PO SCH ×3 (05:30→22:22)
[2022-11-21] MEDS: REMDESIVIR 100 MG in SODIUM CHLORIDE 250 ML IVPB SCH (07:02)
[2022-11-21] MEDS ORDERED: REMDESIVIR 100 MG in SODIUM CHLORIDE 250 ML IVPB SCH (10:00)
[2022-11-21] MEDS: VALPROATE SODIUM 250 MG/5 ML UNIT DOSE CUP PO SCH ×2 (11:30→22:23)
[2022-11-21] MEDS: LORATADINE 10 MG TABLET PO SCH (11:30)
[2022-11-21] MEDS: CYANOCOBALAMIN 1,000 MCG TABLET (FP) PO SCH (11:30)
[2022-11-21] MEDS: CITALOPRAM HYDROBROMIDE 10 MG TABLET PO SCH (11:30)
[2022-11-21] MEDS: DEXAMETHASONE SOD PHOSPHATE 10 MG/1 ML VIAL IVPUSH SCH (11:34)
[2022-11-21] MEDS: ATORVASTATIN CA 20 MG TABLET (FP) PO SCH (22:23)
[2022-11-21] MEDS: EZETIMIBE 10 MG TABLET (FP) PO SCH (22:23)
[2022-11-22] MEDS: clonazePAM 0.5 MG TABLET PO SCH ×2 (06:43→14:02)
[2022-11-22] MEDS: DEXTROSE 5%-NORMAL SALINE 1,000 ML IV SCH (07:35)
[2022-11-22] MEDS: CYANOCOBALAMIN 1,000 MCG TABLET (FP) PO SCH (09:52)
[2022-11-22] MEDS: LORATADINE 10 MG TABLET PO SCH (09:52)
[2022-11-22] MEDS: VALPROATE SODIUM 250 MG/5 ML UNIT DOSE CUP PO SCH (09:52)
[2022-11-22] MEDS: CITALOPRAM HYDROBROMIDE 10 MG TABLET PO SCH (09:52)
[2022-11-22] MEDS: DEXAMETHASONE SOD PHOSPHATE 10 MG/1 ML VIAL IVPUSH SCH (09:52)
[2022-11-22 14:33] VITALS: BP 144/75; PULSE 77; TEMP 98
== END 2022-11-22 17:55 | DRG 177 ==
LOC: JER 00:15 → JERBED 02:59 → J8W 23:27
PROVIDERS: ADMIT Internal Medicine; ATTEND Internal Medicine
PROC: XW033E5 Introduction of Remdesivir Anti-infective into Peripheral Vein, Percutaneous Approach, New Technology Group 5 (ICD-10-PCS; principal; 2022-11-17)
DX: U07.1 COVID-19 (principal); J12.82 Pneumonia due to coronavirus disease 2019; J15.9 Unspecified bacterial pneumonia; J96.01 Acute respiratory failure with hypoxia; J90 Pleural effusion, not elsewhere classified; F02.80 Dementia in other diseases classified elsewhere, unspecified severity, without behavioral disturbance, psychotic disturbance, mood disturbance, and anxiety; G30.9 Alzheimer's disease, unspecified; E78.5 Hyperlipidemia, unspecified
CPT/HCPCS: 0241U-QW; 36415; 36600; 70450-TC; 71045-TC-FY; 80053; 81003; 82803; 82962; 83615; 83735; 84484; 85025; 85651; 86140; 87040; 87086; 93005; 93010; 99285-25; C9399; J1100